=== PATIENT | female | born 1955 | race Caucasian/White ===

== ENCOUNTER → 2018-02-25 08:13 | Outpatient (CLI) | payer OTHER, SELFPAY ==
--- NOTE | 2018-02-25 08:15 | RAD_ITS ---
STUDY: X-RAY - LEFT KNEE REASON FOR EXAM: Anterior and lateral knee pain, injury years ago, history of arthroscopic surgery. TECHNIQUE: 4 view(s) of the knee. COMPARISON: None. FINDINGS: Normal visualized distal femur. Normal visualized proximal tibia and fibula. Normal proximal tibiofibular articulation. Normal medial femorotibial compartment. There are marginal osteophytes and moderate joint space narrowing of the lateral femorotibial compartment. Normal patellofemoral articulation. The soft tissue structures are unremarkable. RAD/Knee 4 or More Views IMPRESSION: Arthrosis of the lateral femorotibial compartment. Electronically Signed: Denton Benites MD at 7:52 EDT Tel , Service support ,
== END ==
PROVIDERS: Visit Provider Orthopaedic Surgery
DX: M25.562 Pain in left knee (principal)
CPT/HCPCS: 73564

== ENCOUNTER 2018-03-26 08:00 | Outpatient (RCR) | payer OTHER, SELFPAY ==
--- NOTE | 2018-03-03 09:07 | HP.PTEVAL ---
Patient's Visit Information ADALBERTO GORDON is a 62 year old F referred to Physical Therapy by Karina Gagnon DO with a diagnosis of L knee OA. Date of Evaluation: 03/03/18 Physical Therapist: Kendall Manley PT, - Visit Plan Frequency: 2-3x /Week Duration: 4 Weeks Plan: L knee stretching and strengthening, PROM/mobs, balance and proprio, core stab ex's, nustep, and HEP - Subjective Subjective: Pt reports her L knee has been sore intermittently for several years. Pt notes her pain has progressively worsened over this time span. Pt reports she had arthroscopic surgery on her L knee in the 's from a skiing accident. Pt reports her L knee was fine for years after that surgery. Pt notes when she steps off of something, or steps on to uneven terrain, her L knee want s to give out on her. No Hx of falls. Pt notes the lateral aspect of her L knee is numb at times. Pt notes she has a hard time falling asleep due to her pain. Pt has stairs at home and negotiates them one step at a time. 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 2/10 at rest, 9/10 at worst (when she steps wrong on it) - Pain L knee Pain Intensity (Out of 10): 2 Pain Intensity Range: 9 - Objective Neuro: B LE sensation is WNL to light touch. B achilles reflex= 2+/3. Palpation: Mild pain on lateral joint line of L knee. Mild swelling noted. No obvious deformity. Girth at joint line: L knee 38.5 cm, R knee 37 cm. ROM: R knee 0-135, L knee 0-25-135. MMT: R knee 5/5 throughout, L knee ext 4+/5, 4-/5. Special testing: No pos tests at this time - Goals Goal 1:: Decrease L knee pain x 50% to aid with sleep Goal Time Frame: 4-6 Weeks Goal 2:: Increase L knee ext ROM x 20 degrees to aid with restoring a more normal gait pattern. Goal Time Frame: 4-6 Weeks Goal 3:: Increase L knee strength x 1 grade to aid with stair negotiation Goal Time Frame: 4-6 Weeks Goal 4:: I with HEP Goal Time Frame: 4-6 Weeks - Rehabilitation Potential Physical Therapy Diagnosis: L knee pain, weakness, and limited ROM secondary to degenerative changes in the L knee Rehabilitation Potential: Good - Anticipated Interventions Patient/Client Instruction: Educate patient on: Condition, Plan of Care For the Purpose of:: To improve self management Therapeutic Exercise to Include: Strength training, Endurance training, Balance training, Flexibilty training, Gait and locomotor training, Passive ROM, Active ROM, Dynamic Lumbar Stabilization For the Purpose of:: To decrease pain, To increase ROM, To improve muscle performance and motor function Cryotherapy (ice pack, ice massage): Yes For the Purpose of:: To decrease pain Thank you for the opportunity to evaluate your patient. For Medicare and Medicare HMO plans, please review the plan of care and approve it. It will need to be FAXED BACK to us at [phone] for Medicare purposes. Please let me know if there are questions or concerns regarding this plan of care. Physician Signature: Date:
--- NOTE | 2018-06-09 12:51 | HP.PTDCSUM ---
HP - PT D/C Summary It has been my pleasure to treat ADALBERTO GORDON under orders from Karina Gagnon DO, for the diagnosis of L knee OA for a total of 9 visit(s). Discharge Date: Please see the following information for a summary of their discharge status. - Subjective Subjective: Pt reports she is better overall - Pain L knee Pain Intensity (Out of 10): 4 - Overall Improvement % Improvement: 65 - Objective Objective/Function: L knee ROM: 0-20-140. MMT: 5/5 throughout. Pain is 4/10. Pt is I with HEP. Rx goals achieved - Goals Goal 1:: Decrease L knee pain x 50% to aid with sleep Goal Progress: Goal Met Goal 2:: Increase L knee ext ROM x 20 degrees to aid with restoring a more normal gait pattern. Goal Progress: Progressing Goal 3:: Increase L knee strength x 1 grade to aid with stair negotiation Goal Progress: Goal Met Goal 4:: I with HEP Goal Progress: Goal Met - Plan Plan: Discharge - D/C Information If there are questions or concerns regarding this patient's physical therapy, please feel free to call me at [phone]. Thank you for the referral of this patient. Sincerely, Kendall Manley, PT,
== END 2018-03-26 19:00 | disposition home or self-care (01) ==
LOC: PT 08:00
PROVIDERS: Visit Provider Orthopaedic Surgery
DX: M17.12 Unilateral primary osteoarthritis, left knee (principal)
CPT/HCPCS: 97110; 97161; 97530

== ENCOUNTER 2021-03-19 08:30 | Outpatient (RCR) | payer OTHER, SELFPAY ==
[2021-02-08 09:27] VITALS: BMI 31.6
--- NOTE | 2021-02-14 09:57 | HP.PTEVAL ---
Patient's Visit Information ADALBERTO GORDON is a 65 year old F referred to Physical Therapy by JACK Araiza with a diagnosis of L knee pain and osteoarthritis of lateral compartment. Date of Evaluation: 02/14/21 Physical Therapist: Kenton Bennett DPT - Visit Plan Frequency: 2x /Week Duration: 4 Weeks Plan: 1) Start with L knee extension stretching (PROM) 2) PA tibial femoral mobs reinforcing TKE on LLE 3) quad isometric strengthening progressing to concentric. 4) progress gait motor control to increase proper mechanics. - Subjective Pt. is here today for her initial evaluation with diagnosis of L knee pain and osteoarthritis of lateral compartment. Pt. reports overall she has improved since seeing her physician who gave her meloxicam. She reports having progressive L knee pain for the last 5 years. She did fall on her L knee and has had pain since. She did believe that her pain with get back, but never really has. She does work, mostly desk job. She has not been as active secondary to knee pain. She has marked gait abnormalities. Increases pain: walking, standing getting up after prolonged sitting, stairs. It gets really stiff.' Decreases pain: meds OTC, ice. Denies N/T, but does report having LLE weakness. She would like to get back to all walking and work related activities without limitations. - Pain L knee Pain Intensity (Out of 10): 4 Pain Intensity Range: 2, 8 - Objective POSTURE: Pt. has slight increased wt. shift to R side with marked loss in TKE on L side in stance. Pt. has normal KLAUDIA, but tends to stand with out heel down. PALPATION: Pt. mild tenderness at lateral joint line and medial joint line of L knee. No posterior pain. She is also having some distal quad tenderness. NEURO: pt. has normal sensation and normal DTR of BLEs. ROM: R knee 0-0-135deg. L knee 0-28-135deg. After passive stretching adn joint mobs pt. was able to achieve 0-22-135deg of ROM. She has marked limitation with L knee extension. I did not get a firm end feel, but patient was tender and guarded from working further into extension. Pt. has good ROM of B hips. MMT: RLE 4+/5 throughout. LLE: ankle 5/5 throughout; knee: ext 3-/5, flexion 4/5; hip- flexion 3+/5, abd 3/5, ext 4/5. Core strength- poor. GAIT: pt. ambulates without AD. She has marked loss of TKE on L side during stance phase. She has no heel strike with initial contact. She tends to walk in PF position to adapt around her lack of TKE. STAIRS: Pt. is able to negotiate with 2 HR with step to pattern, loading RLE only. - Goals Goal 1:: LTG: Pt. to be I with HEP for LLE ROM and strengthening. Goal Time Frame: 4-6 Weeks Goal 2:: STG: Pt. to increase her knee extension to lacking 10deg of TKE. Goal Time Frame: 2-4 Weeks Goal 3:: LTG: Pt. to increase her L knee ROM to 0-0-135deg. Goal Time Frame: 4-6 Weeks Goal 4:: LTG: Pt. to ambulate unlimited distances with improved TKE during stance phase with 0-1/10 pain in L knee allowing to increased quality of life. Goal Time Frame: 4-6 Weeks Goal 5:: LTG: Pt. to have increased LLE strength to at least 4+/5 throughout. Goal Time Frame: 4-6 Weeks Goal 6:: LTG: Pt. to negotiate 1 flight of stairs with 1 HR with reciprocal pattern. Goal Time Frame: 4-6 Weeks - Rehabilitation Potential Physical Therapy Diagnosis: Pt. has signs and symptoms consistent with L knee pain and osteoarthritis of lateral compartment. Pt. has marked loss of knee extension and lacks strength of her L LE most notably with knee extension. Pt. would benefit from PT to work on the above limitation progressing ROM in order to increase proper gait pattern. Rehabilitation Potential: Good - Anticipated Interventions Patient/Client Instruction: Educate patient on: Condition, Plan of Care, Risk Factors, Benefits of Fitness Program For the Purpose of:: To facilitate caregiver knowledge, To improve self management, To prevent re-injury, To improve ability to perform tasks related to life management, To improve tolerance to ADL's Therapeutic Exercise to Include: Strength training, Power training, Body mechanics, Postural training, Flexibilty training, Gait and locomotor training, Passive ROM, Active ROM For the Purpose of:: To decrease pain, To decrease swelling/inflammation, To increase ROM, To improve nutrient delivery to tissue, To increase oxygenation perfusion, To improve muscle performance and motor function, To improve ability to perform ADL's, To improve health of tissue, To decrease soft tissue restriction, To increase flexibility/ROM Manual Therapy Techniques to Include: Mobilization, Passive ROM For the Purpose of:: To decrease pain, To decrease swelling/inflammation, To increase ROM, To improve nutrient delivery to tissue, To increase oxygenation perfusion Thank you for the opportunity to evaluate your patient. For Medicare and Medicare HMO plans, please review the plan of care and approve it. It will need to be FAXED BACK to us at [phone] for Medicare purposes. For Medicare only, by signing this I certify the plan of care. Please let me know if there are questions or concerns regarding this plan of care. Physician Signature: Date:
--- NOTE | 2021-03-20 17:33 | HP.PTDCSUM ---
It has been my pleasure to treat ADALBERTO GORDON referred by JACK Araiza, with the diagnosis of L knee pain and osteoarthritis of lateral compartment for a total of 9 visit(s). Discharge Date: 03/19/21 Please see the following information for a summary of their discharge status. Subjective: Pt. arrives today with reports of increased L knee pain. She reports running out of her anti inflammatory and her pain as come back. She reports increased stiffness and pain. Prior to today she reports being 70% better, but today feels like she is back to how she was when she started PT. I talked to her about talking to physician about getting new prescription for PT. L knee Pain Intensity (Out of 10): 5 % Improvement: 20 Objective/Function: ROM: L knee 0-18-132deg. Pt. was down to lacking 9 deg of extension previously. Pt. reports increased pain limiting her extension. Pt. continues to have large amount of valgus positioning of L knee in stance and limited with TKE. Pt. has increased pain with all MMT this date as well. MMT: 4/5 throughout LLE. GAIT: Pt. ambulates with lacking TKE on LLE and limited knee flexion during swing phase. Pt. reports pain throughout gait cycle. I talked to her about seeing physician about another prescription of her medication. Pt. reported she already had. I also talked with her about getting off barrel loader and cleaner brace or dynamic splinting to increase extension ROM. Either brace could be helpful in their own respects. Pt. to follow up with ortho about her knee Goal 1:: LTG: Pt. to be I with HEP for LLE ROM and strengthening. Goal Progress: Goal Met Goal 2:: STG: Pt. to increase her knee extension to lacking 10deg of TKE. Goal Progress: Progressing Goal 3:: LTG: Pt. to increase her L knee ROM to 0-0-135deg. Goal Progress: Progressing Goal 4:: LTG: Pt. to ambulate unlimited distances with improved TKE during stance phase with 0-1/10 pain in L knee allowing to increased quality of life. Goal Progress: Progressing Goal 5:: LTG: Pt. to have increased LLE strength to at least 4+/5 throughout. Goal Progress: Progressing Goal 6:: LTG: Pt. to negotiate 1 flight of stairs with 1 HR with reciprocal pattern. Goal Progress: Progressing Plan: Pt. to be DC back to physician at this point in time. Consider dynamic extension brace or off barrel loader and cleaner bracing. Discharge Comments: Pt. was treated with ROM and strengthening exercises. Focusing on end range knee extension and quad/glute med strengthening. Pt. was doing very well, but reports that her medication (anti inflammatory) ran out and her pain as been worse since. Pt. is independent with her HEP and plans to progress independently and follow up with physician for next course of action. If there are questions or concerns regarding this patient's physical therapy, please feel free to call me at [phone]. Thank you for the referral of this patient. Sincerely, Kenton Bennett DPT Balance/Gait/Functional tests - Balance/Special Test Scores Lower Extremity Functional Score: 40
== END 2021-03-19 19:00 | disposition home or self-care (01) ==
LOC: PT 08:30
PROVIDERS: Visit Provider Physician Assistant
DX: M25.562 Pain in left knee (principal); M19.90 Unspecified osteoarthritis, unspecified site
CPT/HCPCS: 97110; 97140; 97161; 97164

== ENCOUNTER 2022-06-11 13:55 | Emergency (ER) | payer MEDICARE, OTHER, SELFPAY ==
[2022-06-11 13:56] VITALS: BP 130/61; PULSE 77; RESP 16; TEMP 36.8; O2SAT 99; BMI 29.0
--- NOTE | 2022-06-11 13:59 | EKG12_ITS ---
Test Reason : CP Blood Pressure : / mmHG Vent. Rate : 071 BPM Atrial Rate : 071 BPM P-R Int : 192 ms QRS Dur : 080 ms QT Int : 408 ms P-R-T Axes : 055 012 040 degrees QTc Int : 443 ms Normal sinus rhythm Nonspecific T wave abnormality Abnormal ECG Confirmed by TOM MCINTOSH, VASILE ([id number]), clinical editor CASSIA WINTER ([id number]) on 06/16/2022 11:45:02 AM Referred By: TEJA Confirmed By:VASILE SANTOS MD
[2022-06-11 14:23] LABS: Absolute Lymphocyte Count 1.81 X10^3/uL (0.83-4.51); Absolute Neutrophil Count 5.1 X10^3/uL (2.0-7.7); Basophil# 0.03 X10^3/uL; Basophil% 0.4 % (0-1); Eosinophils% 1.3 % (0-5); Hematocrit 40.9 % (37-47); Hemoglobin 13.3 g/dL (12.0-15.0); Lymphocyte # 1.81 X10^3/ul (0.83-4.51); Lymphocyte % 23.9 % (19-41); Mean Corp Hgb Conc 32.5 g/dL (32-36); Mean Corpuscular Hgb 29.7 pg (27.0-32.0); Mean Corpuscular Volume 91.3 fL (81-99); Mean Platelet Vol. 10.4 fl (6.2-12.0); Monocyte# 0.52 X10^3/uL; Monocyte% 6.9 % (0-10); NRBC Flagged by Analyzer 0 % (0-5); Neutrophil # 5.09 X10^3/uL (2.7-7.7); Neutrophil % 67.1 % (47-70); Platelet Count 294 K/mm3 (150-450); RBC Distribution Width CV 12.8 % (11.6-14.6); RBC Distribution Width SD 41.8 fl (35.1-43.9); Red Blood Count 4.48 M/mm3 (4.2-5.4); White Blood Count 7.6 K/mm3 (4.4-11.0)
[2022-06-11 14:38] VITALS: BP 133/70; PULSE 73; RESP 13; O2SAT 99
[2022-06-11 14:41] LABS: Anion Gap 7 (5-15); BUN 14 mg/dL (7-18); BUN/Creat Ratio 14.8 RATIO (10-20); Calcium,Total 9.6 mg/dL (8.5-10.1); Chloride 105 mmol/L (98-107); Creatinine, Serum 0.94 mg/dL (0.55-1.02); EST Glomerular Filtration Rate 63 mL/min (>60); Est Glom Filt Rate - Afr Amer 76 mL/min (>60); Estimated Creatinine Clearance 55.11 ml/min; Glucose 135 mg/dL (74-106); Potassium 3.6 mmol/L (3.5-5.1); Sodium Level 140 mmol/L (136-145); Troponin-I HS < 3 pg/mL (3.0-54.0)
--- NOTE | 2022-06-11 14:54 | ED.VIS.CHEST ---
HPI History of Present Illness Chief Complaint: Chest Pain Informant: patient Onset/Context/Timing Onset: Today Activity at onset: sudden Narrative Narrative: Patient presents with sudden pain to the lower sternal area while eating lunch today. She states all of a sudden she got pain and went to the restroom. She got sweaty and lightheaded. She was nauseated but did not vomit. Currently the severe pain is resolved and she just reports an aching sensation in that area. She reports maybe 3 or 4 episodes of something similar happening previously. She is never been evaluated for it. [facility] Medical History No active medical problems no medical history Allergy/AdvReac Type Severity Reaction Status Date / Time codeine Allergy Intermediate Rash Verified 06/11/22 13:58 Penicillins Allergy Intermediate Rash Verified 06/11/22 13:58 Family History Grandfather Diabetes Grandmother Leukemia Surgical History H/O arthroscopic knee surgery H/O dilation and curettage Social History household members: spouse and children housing: house current occupational status: employed current occupation: Director pets and animals: Yes pets and animals: cat(s) Smoking Status: Never smoker alcohol intake: current alcohol intake frequency: holidays/special occasions only substance use type: does not use what type of physical activity do you participate in: additional details: stationary bike seatbelt use: always do you feel safe at home: Yes ROS ROS ED Constitutional Constitutional ED: Denies chills or fever(s) Eyes Eyes: Denies change in vision or discharge from eye(s) ENT ENT ED: Denies discharge from eye(s), rhinorrhea or sore throat Cardiovascular Cardiovascular: Reports chest pain; Denies palpitations Respiratory/Chest Respiratory/Chest: Denies cough or dyspnea Gastrointestinal Gastrointestinal: Reports abdominal pain and nausea; Denies diarrhea or vomiting Genitourinary Genitourinary ED: Denies difficulty urinating or dysuria Musculoskeletal Musculoskeletal: Denies back pain or extremity pain Integumentary Denies Abrasions or rash Neurologic Neurologic: Denies headache(s) or weakness Allergic/Immunologic Allergic/Immunologic ED: Denies lip swelling or urticaria EXAM Physical Exam Const Vital Signs: 06/11/22 13:56 06/11/22 14:38 06/11/22 14:38 Temperature 98.2 F Temperature Source Temporal Pulse Rate 77 73 Respiratory Rate 16 13 Respiratory Effort Blood Pressure 130/61 H 133/70 H Blood Pressure Mean 84 91 Pulse Ox 99 99 99 Oxygen Delivery Method Room Air Room Air Room Air 06/11/22 14:38 06/11/22 15:00 Temperature Temperature Source Pulse Rate 76 Respiratory Rate 16 Respiratory Effort Normal Non-Labored Blood Pressure 127/73 H Blood Pressure Mean 91 Pulse Ox 98 Oxygen Delivery Method Room Air Positive well nourished and well developed General Appearance ED: well developed HEENT Reports normocephalic and head/scalp atraumatic Eyes PERRL and EOMs intact bilaterally Neck supple Chest Wall inspection of chest normal and palpation of chest normal Resp normal respiratory effort and clear to auscultation bilaterally Cardio regular rate and regular rhythm GI normal to inspection, nondistended, normoactive bowel sounds Palpation: soft Extremity normal to inspection Neuro oriented x3 and no sensory deficits noted Sensorium / Orientation: alert Motor Exam: strength 5/5 throughout Psych mental status grossly normal Skin no rashes or lesions noted Heart Score History: Slightly/Non-Suspicious ECG: Normal Age: >/= 65 years Risk Factors: No Risk Factors Troponin: </= Normal Limit Score: 2 MDM MDM MDM Narrative Medical decision making narrative: Was on library monitor. EKG, chest x-ray, lab work obtained. Lab Data Attestation: I reviewed the patient's lab results. Labs: Laboratory Results - last 24 hr 06/11/22 06/11/22 06/11/22 14:17 14:17 15:25 WBC 7.6 RBC 4.48 Hgb 13.3 Hct 40.9 MCV 91.3 MCH 29.7 MCHC 32.5 RDW Std Deviation 41.8 RDW Coeff of Nayla 12.8 Plt Count 294 MPV 10.4 Immature Gran % (Auto) 0.400 Neut % (Auto) 67.1 Lymph % (Auto) 23.9 Stearns % (Auto) 6.9 Eos % (Auto) 1.3 Baso % (Auto) 0.4 Absolute Neuts (auto) 5.1 Absolute Lymphs (auto) 1.81 Nucleated RBC % 0 Sodium 140 Potassium 3.6 Chloride 105 Carbon Dioxide 28.0 Anion Gap 7 BUN 14 Creatinine 0.94 Estim Creat Clear Calc 55.11 Est GFR (MDRD) Af Amer 76 Est GFR (MDRD) Non-Af 63 BUN/Creatinine Ratio 14.8 Glucose 135 H Calcium 9.6 Total Bilirubin 0.30 Direct Bilirubin 0.08 AST 14 L ALT 32 Alkaline Phosphatase 78 Troponin I High Sens < 3 L Total Protein 7.5 Albumin 3.7 Globulin 3.8 Triglycerides 193 Cholesterol 203 H LDL Cholesterol 94 VLDL Cholesterol 39 HDL Cholesterol 70 Lipase 216 06/11/22 16:25 WBC RBC Hgb Hct MCV MCH MCHC RDW Std Deviation RDW Coeff of Nayla Plt Count MPV Immature Gran % (Auto) Neut % (Auto) Lymph % (Auto) Stearns % (Auto) Eos % (Auto) Baso % (Auto) Absolute Neuts (auto) Absolute Lymphs (auto) Nucleated RBC % Sodium Potassium Chloride Carbon Dioxide Anion Gap BUN Creatinine Estim Creat Clear Calc Est GFR (MDRD) Af Amer Est GFR (MDRD) Non-Af BUN/Creatinine Ratio Glucose Calcium Total Bilirubin Direct Bilirubin AST ALT Alkaline Phosphatase Troponin I High Sens 3 Total Protein Albumin Globulin Triglycerides Cholesterol LDL Cholesterol VLDL Cholesterol HDL Cholesterol Lipase Radiography Chest X-Ray - ED: 1 View, Read by ED Physician, Normal, Heart, Lungs and Mediastinum Diagnostic Testing: Clinical Impression(s) from Imaging Studies Chest X-Ray 06/11/22 15:07 IMPRESSION: No acute cardiopulmonary disease. Electronically Signed: Paramjit Haider MD at 15:38 EST , EKG Initial EKG: Attestation: I personally reviewed and interpreted this EKG as follows: Interpretation: Sinus Rhythm (Sinus at [address] change. Nonspecific T wave flattening is noted.) Treatment and Re-Evaluation Narrative: On repeat evaluation patient resting comfortably. CBC and chemistry studies are unremarkable. LFTs and lipase are normal. Initial troponin is less than 3 and repeat is 3. EKG reveals no acute ischemia. Chest x-ray per my interpretation reveals no obvious abnormalities. In discussion with patient, I do question whether she is having esophageal spasm at the distal sphincter. She states this has occurred periodically in the past. I encouraged her if it continues to occur more frequently she should follow-up for an EGD. She is given return instructions for the ER if she develops any worsening symptoms or concerns. Discharge Plan Triage Chief Complaint: Chest Pain ED Provider: Mary Grace Santiago Dx/Rx/DC Orders Clinical Impression: Chest pain, non-cardiac Instructions: ED Chest Pain, Noncardiac Primary Care Provider: Care Physician,No Primary Referrals: Mohit Carlton MD [Med Staff - Lump Machine Operator] - As Needed Care Physician,No Primary [Primary Care Provider] - Disposition Disposition: Home, Self Care
[2022-06-11 15:00] VITALS: BP 127/73; PULSE 76; RESP 16; O2SAT 98
--- NOTE | 2022-06-11 15:07 | RAD_ITS ---
EXAM: XR CHEST, 1 VIEW CLINICAL INDICATION: chest pain TECHNIQUE: Frontal view of the chest. This report was created using [employer]line[employer] report generation technology. COMPARISON: None. FINDINGS: LUNGS AND PLEURAL SPACES: Normal. No consolidation or edema. No pneumothorax. No effusion. HEART: Normal heart size. MEDIASTINUM: No mediastinal or hilar mass. BONES/JOINTS: No acute abnormality. SOFT TISSUES: Normal. RAD/Chest 1 View (Portable) IMPRESSION: No acute cardiopulmonary disease. Electronically Signed: Paramjit Haider MD at 15:38 EST ,
[2022-06-11 15:15] LABS: AST(SGOT) 14 U/L (15-37); Alanine Aminotransfer ALT/SGPT 32 U/L (13-56); Albumin, Serum 3.7 g/dL (3.2-5.0); Alkaline Phosphatase 78 U/L (45-117); Bilirubin, Direct 0.08 mg/dL (0.00-0.30); Cholesterol 203 mg/dL (200); Globulin 3.8 g/dL (2.2-4.2); High Density Lipoprotein 70 mg/dL; Protein, Total 7.5 g/dL (6.4-8.2); Triglycerides 193 mg/dL; Very Low Density Lipoprotein 39 mg/dL (5-40)
[2022-06-11 16:05] LABS: Lipase 216 U/L (73-393)
[2022-06-11 16:50] LABS: Troponin-I HS 3 pg/mL (3.0-54.0)
[2022-06-11 17:14] VITALS: BP 128/71; PULSE 76; RESP 16; O2SAT 98
== END 2022-06-11 17:14 | disposition home or self-care (01) ==
PROVIDERS: Emergency Provider Emergency Medicine; Visit Provider Emergency Medicine
DX: R07.89 Other chest pain (principal); R11.0 Nausea
CPT/HCPCS: 71045; 80048; 80061; 80076; 83690; 84484; 85025; 93005; 99284; A4216